=== PATIENT | male | born 1965 | race African-American/Black ===

== ENCOUNTER → 2022-01-09 | Day surgery (SDC) | payer MEDICAID ==
[~2022-01-09] VITALS: Ht 175.3 cm; Wt 89.8 kg
[~2022-01-09] MED LIST: ACET-2708 MT; BUPIVACAINE HCL 0.5% (5MG/ML) 50ML ONE; CYCL10TA21 MT; FENTANYL CITRATE/PF 50MCG/ML 2ML VIAL ONE; HYDROMORPHONE HCL/PF 2MG/ML CPJ IV PRN; LABETALOL 5MG/ML SYR 20 MG/4 ML SYRINGE IV PRN; LACTATED RINGERS 1,000 ML IV SCH; MEPERIDINE HCL/PF 25MG/ML CPJ IV PRN; MIDAZOLAM HCL 2 MG/2 ML VIAL ONE; NORT10CA MT; ONDANSETRON HCL 4MG/2ML INJ IV PRN; PROPOFOL 200MG/20ML VIAL IV ONE; SKIN ADHESIVE 0.7 GM EA TOP ONE
[2022-01-09 10:25] VITALS: BP 151/84
== END | disposition home or self-care (01) ==
LOC: OR 06:07
PROVIDERS: ATTEND Surgery
DX: K40.90 Unilateral inguinal hernia, without obstruction or gangrene, not specified as recurrent (principal); E66.3 Overweight; Z20.822 Contact with and (suspected) exposure to COVID-19; Z79.899 Other long term (current) drug therapy; Z98.890 Other specified postprocedural states
CPT/HCPCS: 49505; 87426; C1781; C9803; J1170; J2250; J2405; J2704; J3010; J3490; J7120